=== PATIENT | female | born 1980 | race Two or more races ===

== ENCOUNTER 2024-12-12 12:23 | Emergency (ER) | payer OTHER ==
[~2024-12-12] VITALS: Ht 160 cm; Wt 66.2 kg
[2024-12-12] MEDS ORDERED: INDERAL XL80 MG (12:52)
[2024-12-12] MEDS ORDERED: FAMOtidine 10 MG/ML (4ML VIAL) IV ONE (16:30)
[2024-12-12] MEDS ORDERED: KETOROLAC TROMETHAMINE 30 MG VIAL IU ONE (16:30)
[2024-12-12] MEDS ORDERED: 0.9 % SODIUM CHLORIDE 1,000 ML IV ONE (16:30)
[2024-12-12] MEDS ORDERED: CEFTRIAXONE SODIUM 1,000 MG VIAL IV ONE (16:30)
[2024-12-12 16:49] LABS: HEMATOCRIT 40.8 % (36.0-45.00); HEMOGLOBIN 13.9 g/dL (12.0-15.00); MEAN CELL VOLUME 85.6 fL (80.00-100.00); MEAN CORPUSCULAR HEMOGLOBIN 29.3 pg (27.00-32.0); MEAN CORPUSCULAR HGB CONC 34.2 g/dl (32.0-36.0); PLATELET COUNT 408 K/uL (150-450); RED BLOOD COUNT 4.76 M/uL (4.00-6.00); RED CELL DISTRIBUTION WIDTH 15.9 % (11.5-14.5)
[2024-12-12 17:07] LABS: PH,URINE 6.5 (5.0-8.0); URINE APPEARANCE Clear; URINE BILIRRUBIN Negative (NEGATIVE); URINE BLOOD Negative; URINE COLOR Yellow; URINE GLUCOSE Negative (NEGATIVE); URINE KETONE Negative (NEGATIVE); URINE LEUKOCYTE Negative; URINE NITRATE Negative; URINE PROTEIN Negative (NEGATIVE); URINE UROBILINOGEN 0.2 E.U./dl
[2024-12-12 17:10] LABS: URINE BACTERIA 780.8 uL (0.0-1933); URINE EPITHELIAL CELLS 9.6 uL (0.0-38.8); URINE RBC 5.7 uL (0.0-20.8)
[2024-12-12 17:26] LABS: INR 0.98; PARTIAL THROMBOPLASTIN TIME 26.6 SECONDS (22.0-34.0); PROTHROMBIN TIME 10.7 SECONDS (9.0-11.5)
[2024-12-12 17:27] LABS: BILIRUBIN TOTAL 0.43 mg/dL (0.3-1.2); CALCIUM 9.3 mg/dL (8.5-10.1); CREATININE SERUM 0.8 mg/dL (0.55-1.02); GFR 77.92; GLOBULINA 4.9 G/DL (2.4-3.5); POTASSIUM 5.01 mEq/L (3.5-5.1); TOTAL PROTEIN 8.9 gm/dL (6.4-8.2)
[2024-12-12] MEDS ORDERED: PEPCID AC20 MG PO (21:35)
[2024-12-12] MEDS ORDERED: PROBIOTIC1 EAC2 PO (21:35)
[2024-12-12] MEDS ORDERED: NORFLEX100MG PO (21:35)
== END 2024-12-12 22:03 | disposition home or self-care (01) ==
LOC: ER 12:23
PROVIDERS: General Practice
DX: R10.32 Left lower quadrant pain (principal); N83.292 Other ovarian cyst, left side